=== PATIENT | female | born 1965 ===

== ENCOUNTER 2024-07-05 11:21 | Emergency (ER) | payer BC, OTHER ==
[~2024-07-05] VITALS: Ht 172.7 cm; Wt 97.2 kg
[2024-07-05 11:34] VITALS: BP 119/70; PULSE 92; RESP 18; TEMP 100.8; O2SAT 98
== END 2024-07-05 15:35 | disposition left against medical advice (07) ==
LOC: ER 11:22
DX: J11.1 Influenza due to unidentified influenza virus with other respiratory manifestations (principal); Z53.21 Procedure and treatment not carried out due to patient leaving prior to being seen by health care provider
CPT/HCPCS: 87502; 87503